=== PATIENT | female | born 1940 | race Caucasian/White ===

== ENCOUNTER 2016-04-27 23:57 | Emergency (ER) | payer OTHER ==
--- NOTE | 2016-04-28 00:11 | ED EKG INTERP ---
EKG Interpretation - EKG Time of EKG reading by physician:: 00:04 EKG Read and Signed by:: Waqas Harris EKG Interpretation (*Must complete 3 of following elements*): Abnormal (Low voltage QRS; Nonspecific T wave abnormality) Rate: 76 Rhythm: Sinus rhythm with sinus arrythmia with 1st degree AV block Attestation - Scribe Verification/Attestation Scribe:: Kashmir Bryant Acting as Scribe for:: Waqas Harris Scribe documention review:: This chart was documented by a scribe and accurately reflects the service the provider performed and the decisions made by the provider.
[2016-04-28] MEDS ORDERED: ASPIRIN PO STA (00:17)
[2016-04-28] MEDS ORDERED: NITROGLYCERIN SL PRN (00:17)
--- NOTE | 2016-04-28 00:23 | PROVIDER DOCUMENTATION ---
HPI-Chest Pain - General Source: patient - History of Present Illness-CP Location: reports: other (R sided) Chest Pain Radiation: reports: neck Quality of Pain: reports: sharp, other (shooting) Severity in ED: severe Onset/Duration: 1 hour ago Timing: gone now Associated Symptoms: denies: abdominal pain, back pain, diaphoresis, fatigue, headache, heartburn, nausea, shortness of breath, syncope, vomiting, weakness Nitro Today/Relief: no nitro taken today Aspirin Treatment Today: no aspirin today <Kashmir Bryant - Last Filed: 04/28/16 01:34> <Waqas Harris - Last Filed: 04/28/16 03:52> - General Chief Complaint: Chest Pain Stated Complaint: CP Time Seen by Provider: 04/28/16 00:10 Allergies/Adverse Reactions: Patient Allergies Allergy/AdvReac Type Severity Reaction Status Date / Time No Known Allergies Allergy Verified 04/28/16 00:40 Home Medications: Home Medication List Medication Instructions Recorded Confirmed Last Taken Type Flecainide [Tambocor] 50 mg PO BID 04/28/16 04/28/16 04/27/16 21:30 History Furosemide [Lasix] 20 mg PO DAILY #7 tablet 04/28/16 Unknown Rx Levothyroxine [Synthroid] 50 mcg PO DAILY 04/28/16 04/28/16 04/27/16 09:00 History Metoprolol Succinate E.r. [Toprol 50 mg PO DAILY 04/28/16 04/28/16 04/27/16 09: 00 History Xl] Potassium Chloride [Klor-Con M20] 20 meq PO BID #10 tab.er.prt 04/28/16 Unknown Rx Rivaroxaban [Xarelto] 20 mg PO DAILY 04/28/16 04/28/16 04/27/16 09:00 History - History of Present Illness-CP Nature of Presenting Problem: Pt is a 75 yof who presents to ER with CC of a sharp, shooting pain in her neck that radiated to the R side of her chest. 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 Pt also reports that she is currently being treated for A-fib. On exam, pt was in normal sinus rhythm. Pt denies C/P on exam. (Kashmir Bryant) Review of Systems - Adult - REVIEW OF SYSTEMS - ADULT Constitutional: denies: chills, fever, fatique, night sweats, weight gain, weight loss Eyes: reports: no symptoms reported Ears, Nose, Mouth & Throat: reports: no symptoms reported Cardiovascular: reports: chest pain, irregular heart rate, palpitations. denies : edema, heart murmur, orthopnea, poor circulation, PND, syncope Respiratory: denies: chronic cough, cough, dyspnea on exertion, excessive sputum production, hemoptysis, pleurisy, shortness of breath, wheezing Gastrointestinal: reports: no symptoms reported Genitourinary: reports: no symptoms reported Musculoskeletal: reports: neck pain. denies: bone pain, back pain, frequent leg cramps, joint pain, joint swelling, muscle aches, muscle weakness Integumentary: reports: no symptoms reported Neurological: reports: no symptoms reported Psychiatric: reports: no symptoms reported Endocrine: reports: no symptoms reported Hematologic/Lymphatic: reports: no symptoms reported Allergic/Immunologic: reports: no symptoms reported All Other Systems: Reviewed and Negative <Kashmir Bryant - Last Filed: 04/28/16 01:34> Past History - Adult - PAST MEDICAL HISTORY-ADULT Review of Records: reports: Nursing Assessment Review, Medications Reviewed - IMMUNIZATION STATUS Childhood Immunizations: See Nurse Assessment Flu Vaccine: See Nurse Assessment <Kashmir Bryant - Last Filed: 04/28/16 01:34> Physical Exam-General - PHYSICAL EXAM-ADULT Initial Vital Signs Reviewed: Yes - CONSTITUTIONAL General Appearance: appears well, alert, mild distress, lethargic. negative: no apparent distress, moderate distress, severe distress, cachetic, obese, thin , anxious, slow to respond, obtunded, combative - NECK Neck: non-tender, full range of motion, supple. negative: carotid bruit, limited range of motion - RESPIRATORY Respiratory: chest non-tender, lungs clear, normal breath sounds. negative: respiratory distress, decreased breath sounds, accessory muscle use, wheezing - CARDIOVASCULAR Cardiovascular: normal peripheral pulses, regular rate, rhythm. negative: bradycardia, tachycardia, diastolic murmur, systolic murmur, irregularly irregular - NEUROLOGIC Neurologic: grossly normal, no motor/sensory deficits. negative: focal weakness , motor weakness, sensory deficit - PSYCHIATRIC Psych/Mental Status: normal mood/affect, normal thought content, normal thought process, oriented x 3 <Kashmir Bryant - Last Filed: 04/28/16 01:34> Progress - XRAY 1 XRAY: Bilateral XRAY Study: Chest (Possible mild CHF, otherwise normal) Impression: See EMR Report XRAY Interpretation: See report <Kashmir Bryant - Last Filed: 04/28/16 01:34> - REASSESSMENT Reassessment #1 Time Reassessed: 03:51 (no sxs since arrival) Status: improving <Waqas Harris - Last Filed: 04/28/16 03:52> - PLAN OF CARE/RESULTS Progress/Plan/Lab Results: POC: Cardiac enzymes (Kashmir Bryant) Departure <Kashmir Bryant - Last Filed: 04/28/16 01:34> - Departure Time of Disposition Order: 03:51 Certified Medical Emergency: Emergent <Waqas Harris - Last Filed: 04/28/16 03:52> - Departure DIAGNOSIS: Atypical chest pain, Atrial fib/flutter, transient Disposition: HOME 01 Condition: Stable Prescriptions: Potassium Chloride [Klor-Con M20] 20 meq PO BID #10 tab.er.prt Furosemide [Lasix] 20 mg PO DAILY #7 tablet Attestation - Scribe Verification/Attestation Scribe:: Kashmir Bryant Acting as Scribe for:: Waqas Harris Scribe documention review:: This chart was documented by a scribe and accurately reflects the service the provider performed and the decisions made by the provider. <Kashmir Bryant - Last Filed: 04/28/16 01:34> Physician Attestation
[2016-04-28 00:39] LABS: MANUAL DIFF NEEDED? NO
[2016-04-28 00:42] LABS: BASO% 0.6 % (0.0-0.8); EOS# 0.45 X1000 (0.0-0.7); EOS% 8.3 % (0.0-10.0); HEMATOCRIT 35.4 % (37.0-47.0); HEMOGLOBIN 11.9 g/dL (12.0-16.0); LYMPH# 1.48 X1000 (1.2-3.4); LYMPH% 27.5 % (20.5-51.1); MCH 31.3 PG (27-31); MCHC 33.6 g/dL (33-37); MCV 93.2 FL (81-99); MONO# 0.55 X1000 (0.11-0.59); MONO% 10.2 % (1.7-9.3); MPV 11.5 FL (7.4-10.4); NEUT% 53.4 % (42.2-75.2); PLT 148 X1000 (130-400)
[2016-04-28 01:05] LABS: ALBUMIN 3.7 g/dL (3.5-5.0); CALCIUM 10.2 mg/dL (8.8-10.2); MAGNESIUM 1.7 mg/dL (1.5-2.7); POTASSIUM 4.7 mmol/L (3.5-5.1); TOTAL BILIRUBIN 0.58 mg/dL (0.20-1.00); TOTAL PROTEIN 6.5 g/dL (6.3-8.3)
[2016-04-28 01:20] LABS: INR 1.47; PROTIME 14.9 Seconds (9.2-11.7); PTT 33.2 Seconds (22.0-36.0)
[2016-04-28] MEDS ORDERED: LASIX IV ONE (01:38)
[2016-04-28] MEDS ORDERED: XANAX PO ONE (03:31)
[2016-04-28 04:51] VITALS: BP 133/77
--- NOTE | 2016-04-28 08:10 | Diag Imaging Result Document ---
PROCEDURE NAME: CHEST-2 VIEWS - 04/28/2016 FRONTAL AND LATERAL CHEST, TWO VIEWS: FINDINGS: The lungs are hyperexpanded. Mild increased AP diameter to the chest. Pulmonary vessels are small. The heart is mildly enlarged. No pleural effusions. No pneumonia. No free air beneath the diaphragm. Mild scoliosis. IMPRESSION: 1. Emphysema. 2. Mild cardiomegaly.
--- NOTE | 2016-04-29 09:51 | EKG Report ---
Test Performed on : 04/28/2016 00:04:17 AM Test Reason : cp Blood Pressure : / mmHG Vent. Rate : 076 BPM Atrial Rate : 076 BPM P-R Int : 252 ms QRS Dur : 090 ms QT Int : 366 ms P-R-T Axes : 058 030 025 degrees QTc Int : 411 ms Sinus rhythm. with sinus arrhythmia. with 1st degree AV block. Low voltage QRS Nonspecific T wave abnormality Abnormal ECG No previous ECGs available Unconfirmed Result
== END 2016-04-28 04:34 | disposition home or self-care (01) ==
LOC: ED 23:57
DX: I48.92 Unspecified atrial flutter (principal); R07.89 Other chest pain; M54.2 Cervicalgia; R00.2 Palpitations; R53.83 Other fatigue; R94.31 Abnormal electrocardiogram [ECG] [EKG]; Z79.899 Other long term (current) drug therapy; Z79.01 Long term (current) use of anticoagulants
CPT/HCPCS: 71020; 80053; 82550; 83735; 83880; 84484; 85025; 85379; 85610; 85730; 93005; 99284; J1940